=== PATIENT | female | born 1965 | race Caucasian/White ===

== ENCOUNTER 2016-05-17 17:17 | Emergency (ER) | payer MEDICAID ==
[~2016-05-17] VITALS: Ht 170.2 cm; Wt 78.0 kg
[~2016-05-17 17:17] MED LIST: VICODIN 5/500 T1 TAB PO; VOLTAREN75 MG PO
--- NOTE | 2016-05-17 17:23 | Emergency Room Report ---
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 N Clinical Suspician of Infection? N Mental Status: 1 - Regular (Normal Baseline) Sepsis Risk:Low Sepsis Risk Have you (or family members/close friends) recently traveled outside the [place]? N If Yes, where/when: Have you had exposure to infectious disease within the past month? TB? Other? Specify: Comment The patient says that she has had intermittent pain in her LEFT breast going into her axillary area for a couple of weeks. It was many times a day and lasting about 30 minutes at a time. 2-1/2 days ago pain became constant. She describes it as sharp and stabbing. It hurts worse when she raises her LEFT arm and with palpation over the area. She recalls no injury. She has a mild cough from chronic obstructive pulmonary disease but nothing severe. No fever. No hemoptysis. No leg pain or swelling. No nausea or vomiting. No shortness of breath. No medications taken today for the pain. No recent travel, surgeries, or hospitalization. No previous similar symptoms. She says the pain is not in her heart "it's in my boob". She says that she had chest pain also in March and had an angiogram done at [facility] that was negative. She said there were no significant blockages. Her metaphysician is in [facility]. She has cardiac stents. He says she has never had this type of pain before and it does not feel like her heart pain. The patient is tearful and anxious, states that when the dialysis patient care technician had her raise her arm for the x-ray it caused her pain to become more severe. ALLERGIES Coded Allergies: amoxicillin (Mild, 05/17/16) pantoprazole (From PROTONIX) (Mild, 05/17/16) History Medical History General Angina: Yes [place]: No Hypertension? Yes Hyperlipidemia? Yes CHF? No COPD? No Asthma? No CVA? No Seizures? No Diabetes? Yes Insulin Dependent: No Insulin Pump: No Home FSBS? Yes GB Disease: No MRSA? No TB? No Cancer? 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 Hx LMP N/A Family History Family Hx Diabetes Yes CAD Yes Hypertension Yes Hyperlipidemia Yes Cancer Yes TB Yes Social History Smoking Hx Smoker: Current Every Day Smoker Tobacco: Yes Type Cigarettes Packs/day 1 1/2 - 2 Packs Alcohol Alcohol: No Review of Systems All Other Systems Reviewed and Negative Constitutional denies fever Respiratory cough, denies shortness of breath Cardiovascular chest pain Gastrointestinal denies abdominal pain, denies constipation, denies diarrhea, denies nausea, denies vomiting Physical Exam Vital Signs Vital Signs Date Time Temp Pulse Resp B/P Pulse O2 O2 Flow FiO2 Ox Delivery Rate 05/17 1849 18 05/17 1718 98.3 92 18 139/82 97 General Appearance normal appearance, WD/WN Eye Exam - bilateral eye normal exam, bilateral eye PERRL, bilateral eye EOMI Ear, Nose, Throat hearing grossly normal, normal ENT inspection Neck normal inspection, non-tender, supple, full range of motion Respiratory Status Yes: trachea midline, chest symmetrical, tender on palpation. No: respiratory distress. Lung Sounds bilateral: normal breath sounds, lungs clear. Cardiovascular normal exam, regular rate/rhythm, no peripheral edema, no gallop, no JVD, no murmur, no rub, normal peripheral pulses Peripheral Pulses Pulses normal Yes Gastrointestinal normal bowel sounds, normal exam, non tender, soft, no organomegaly Back normal inspection, no CVA tenderness, no vertebral tenderness Extremities non-tender, normal range of motion, normal inspection Neurologic alert, demonstrator knitting II-XII nml as tested, normal exam, oriented x 3 Mental status anxious Skin intact, normal color, warm/dry Comments Reproducible exquisite tenderness to LEFT anterior/lateral chest into the LEFT axilla. Medical Decision Making LABS/Meds/Orders Pt receiving controlled substance in ED? Yes Macoscope was queried for this patient? No Reason not queried - Macoscope system downtime Results/Orders Laboratory Tests 05/17/16 1805: Sodium 139, Potassium 4.0, Chloride 106, Carbon Dioxide 27, BUN 7, Creatinine 0.8, Estimated Creat Clear 105, Estimated GFR (MDRD) 76, Glucose 308 H, Calcium 8.4 L, Total Bilirubin 0.6, AST 7 L, ALT 15, Alkaline Phosphatase 119 H, Creatine Kinase 38, CK-MB (CK-2) Rel Index 2.4, CK and CKMB Interp 0.9, Troponin I < 0.02, Total Protein 6.5, Albumin 3.2 L, Globulin 3.3 H, Albumin/Globulin Ratio 1.0 L, WBC 7.4, RBC 4.28, Hgb 9.9 L, Hct 32.6 L, MCV 76.2 L, RDW 16.0, Plt Count 267, MPV 7.5, Gran % 63.0, Gran # 4.6, Lymphocytes % 30.3, Monocytes % 5.7, Eosinophils % 0.6, Basophils % 0.5, Lymphocytes # 2.2, Monocytes # 0.4, Eosinophils # 0.1, Basophils # 0.0, PUBS MCHC 30.4 L, MCH 23.2 L Current Medication Orders Sig/Ganga Start time Last Medication Dose Route Stop Time Status Admin Ketorolac 0 .STK-MED ONE 05/17 1845 DC Tromethamine .ROUTE Ketorolac 30 MG ONCE ONE 05/17 1844 DC 05/17 Tromethamine IV 05/17 1845 184 Sodium Chloride 10 ML PRN PRN 05/17 1800 AC IV 05/18 1748 Orders Procedure Date/time Status ELECTROCARDIOGRAM REQUEST 05/17 174 Active CHEST(2 VIEWS-NOT PORTABLE) 05/17 174 Active IV SALINE LOCK 05/17 174 Active REPORT CHECKER 05/17 174 Active CBC WITH AUTO DIFF 05/17 174 Complete CARDIAC ENZYMES 05/17 1748 Complete CHEM 12 PROFILE 05/17 1748 Complete 12 LEAD EKG-NIKHIL (INITIAL) 05/17 UNK Active CM/EKG CM/EKG Comments EKG interpreted by Johan Marino MD: Rhythm: sinus Rate: 93 [place]: normal Ectopy: none Conduction: normal ST Segment Changes: none T Wave Changes: Nonspecific, flattening Q Waves: none Baseline artifact present, but I consider the EKG adequate for accurate interpretation. XRAY/CT/US XRAY/CT/US XRAY chest Comment X-ray interpreted by Johan Marino M.D. No infiltrate, pneumothorax, pleural effusion, or wide mediastinum. Progress - I estimate there is LOW risk for PULMONARY EMBOLISM, ACUTE CORONARY SYNDROME, OR THORACIC AORTIC DISSECTION, thus I consider the discharge disposition reasonable. The patient has had constant pain for 2-1/2 days with negative cardiac enzymes. Her examination is consistent with chest wall pain. She had a negative cardiac cath in March. The patient is not currently have a primary care physician but is scheduled to see Dr. Maradiaga later this month. She says she recently moved. However, she did not have a primary care physician in [place] either. Advised to follow-up with Dr. Maradiaga as soon as possible. Advised of blood sugar and hemoglobin which will need follow-up. Departure Departure Disposition DC Home or Self Care(routine) Clinical Impression Primary Impression: Chest wall pain Condition STABLE Referrals NO REFERRAL Patient Instructions DI for Chest Pain Additional Instructions Additional instructions for CHEST PAIN: See your physician as soon as possible for further evaluation. Return immediately if worsening chest pain, vomiting, shortness of breath, fever, coughing of blood. Additional instructions for CONTROLLED SUBSTANCES: You have been prescribed a medication that is a controlled substance. Controlled substances include pain medications known as opiates and sedative nerve medications known as benzodiazepines. Some common opiates include: Codeine (such as Tylenol #3) Hydrocodone (Vicodin, Lortab, Lorcet, [place]) Oxycodone (Percocet, Percodan, Oxycodone, Oxy IR) Some common benzodiazepines include: Diazepam (Valium) Lorazepam (Ativan) Alprazolam (Xanax) Clonazepam (Klonopin) Oxazepam (Serax) All of these controlled substances are highly addictive and frequently abused. Misuse can and frequently does lead to addiction as well as overdose and . Short term supplies, 3 days or less, are prescribed because of the highly addictive nature of the medication. Any of the controlled substance medication NOT taken should be disposed of properly and NOT SAVED. The recommended method of disposing of unused medications is: Place the medicines in a sealable plastic bag. If the medicine is a solid, crush it or add water to dissolve it. Add something undesirable (cat litter, coffee grounds, etc.) Dispose of sealed bag in household trash Do not flush or pour unused medicines down a sink or drain. Also, because of the addictive nature and frequent abuse, these medications are sometimes stolen. These medications should be kept in a safe place where they cannot be stolen. Do not keep them in your car or purse. Lost or stolen prescriptions for controlled substances WILL NOT BE REFILLED in this emergency department, regardless of whether a police report was filed. Prescriptions Current Visit Scripts HYDROCODONE/ACETAMINOPHEN ([place] 5-325 Tablet) 1 TAB PO Q6HP PRN pain #10 TAB Naproxen (Naprosyn 500MG Tab) 500 MG PO BID #14 TAB ED Critical Care Critical Care No at 1918
--- NOTE | 2016-05-17 17:23 | Emergency Room Report ---
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 N Clinical Suspician of Infection? N Mental Status: 1 - Regular (Normal Baseline) Sepsis Risk:Low Sepsis Risk Have you (or family members/close friends) recently traveled outside the [place]? N If Yes, where/when: Have you had exposure to infectious disease within the past month? TB? Other? Specify: Comment The patient says that she has had intermittent pain in her LEFT breast going into her axillary area for a couple of weeks. It was many times a day and lasting about 30 minutes at a time. 2-1/2 days ago pain became constant. She describes it as sharp and stabbing. It hurts worse when she raises her LEFT arm and with palpation over the area. She recalls no injury. She has a mild cough from chronic obstructive pulmonary disease but nothing severe. No fever. No hemoptysis. No leg pain or swelling. No nausea or vomiting. No shortness of breath. No medications taken today for the pain. No recent travel, surgeries, or hospitalization. No previous similar symptoms. She says the pain is not in her heart "it's in my boob". She says that she had chest pain also in March and had an angiogram done at [facility] that was negative. She said there were no significant blockages. Her speedometer inspector is in [facility]. She has cardiac stents. He says she has never had this type of pain before and it does not feel like her heart pain. The patient is tearful and anxious, states that when the sound technician had her raise her arm for the x-ray it caused her pain to become more severe. ALLERGIES Coded Allergies: amoxicillin (Mild, 05/17/16) pantoprazole (From PROTONIX) (Mild, 05/17/16) History Medical History General Angina: Yes [place]: No Hypertension? Yes Hyperlipidemia? Yes CHF? No COPD? No Asthma? No CVA? No Seizures? No Diabetes? Yes Insulin Dependent: No Insulin Pump: No Home FSBS? Yes GB Disease: No MRSA? No TB? No Cancer? 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 LMP N/A Family History Family Hx Diabetes Yes CAD Yes Hypertension Yes Hyperlipidemia Yes Cancer Yes TB Yes Social History Smoking Hx Smoker: Current Every Day Smoker Tobacco: Yes Type Cigarettes Packs/day 1 1/2 - 2 Packs Alcohol Alcohol: No Review of Systems All Other Systems Reviewed and Negative Constitutional denies fever Respiratory cough, denies shortness of breath Cardiovascular chest pain Gastrointestinal denies abdominal pain, denies constipation, denies diarrhea, denies nausea, denies vomiting Physical Exam Vital Signs Vital Signs Date Time Temp Pulse Resp B/P Pulse O2 O2 Flow FiO2 Ox Delivery Rate 05/17 1849 18 05/17 1718 98.3 92 18 139/82 97 General Appearance normal appearance, WD/WN Eye Exam - bilateral eye normal exam, bilateral eye PERRL, bilateral eye EOMI Ear, Nose, Throat hearing grossly normal, normal ENT inspection Neck normal inspection, non-tender, supple, full range of motion Respiratory Status Yes: trachea midline, chest symmetrical, tender on palpation. No: respiratory distress. Lung Sounds bilateral: normal breath sounds, lungs clear. Cardiovascular normal exam, regular rate/rhythm, no peripheral edema, no gallop, no JVD, no murmur, no rub, normal peripheral pulses Peripheral Pulses Pulses normal Yes Gastrointestinal normal bowel sounds, normal exam, non tender, soft, no organomegaly Back normal inspection, no CVA tenderness, no vertebral tenderness Extremities non-tender, normal range of motion, normal inspection Neurologic alert, stereotype caster II-XII nml as tested, normal exam, oriented x 3 Mental status anxious Skin intact, normal color, warm/dry Comments Reproducible exquisite tenderness to LEFT anterior/lateral chest into the LEFT axilla. Medical Decision Making LABS/Meds/Orders Pt receiving controlled substance in ED? Yes [place] was queried for this patient? No Reason not queried - Flickme system downtime Results/Orders Laboratory Tests 05/17/16 1805: Sodium 139, Potassium 4.0, Chloride 106, Carbon Dioxide 27, BUN 7, Creatinine 0.8, Estimated Creat Clear 105, Estimated GFR (MDRD) 76, Glucose 308 H, Calcium 8.4 L, Total Bilirubin 0.6, AST 7 L, ALT 15, Alkaline Phosphatase 119 H, Creatine Kinase 38, CK-MB (CK-2) Rel Index 2.4, CK and CKMB Interp 0.9, Troponin I < 0.02, Total Protein 6.5, Albumin 3.2 L, Globulin 3.3 H, Albumin/Globulin Ratio 1.0 L, WBC 7.4, RBC 4.28, Hgb 9.9 L, Hct 32.6 L, MCV 76.2 L, RDW 16.0, Plt Count 267, MPV 7.5, Gran % 63.0, Gran # 4.6, Lymphocytes % 30.3, Monocytes % 5.7, Eosinophils % 0.6, Basophils % 0.5, Lymphocytes # 2.2, Monocytes # 0.4, Eosinophils # 0.1, Basophils # 0.0, PUBS MCHC 30.4 L, MCH 23.2 L Current Medication Orders Sig/Ganga Start time Last Medication Dose Route Stop Time Status Admin Ketorolac 0 .STK-MED ONE 05/17 1845 DC Tromethamine .ROUTE Ketorolac 30 MG ONCE ONE 05/17 1844 DC 05/17 Tromethamine IV 05/17 1845 184 Sodium Chloride 10 ML PRN PRN 05/17 1800 AC IV 05/18 1748 Orders Procedure Date/time Status ELECTROCARDIOGRAM REQUEST 05/17 174 Active CHEST(2 VIEWS-NOT PORTABLE) 05/17 174 Active IV SALINE LOCK 05/17 174 Active SCHOOL RESOURCE OFFICER 05/17 174 Active CBC WITH AUTO DIFF 05/17 174 Complete CARDIAC ENZYMES 05/17 1748 Complete CHEM 12 PROFILE 05/17 1748 Complete 12 LEAD EKG-NIKHIL (INITIAL) 05/17 UNK Active CM/EKG CM/EKG Comments EKG interpreted by Johan Marino MD: Rhythm: sinus Rate: 93 [place]: normal Ectopy: none Conduction: normal ST Segment Changes: none T Wave Changes: Nonspecific, flattening Q Waves: none Baseline artifact present, but I consider the EKG adequate for accurate interpretation. XRAY/CT/US XRAY/CT/US XRAY chest Comment X-ray interpreted by Johan Marino M.D. No infiltrate, pneumothorax, pleural effusion, or wide mediastinum. Progress - I estimate there is LOW risk for PULMONARY EMBOLISM, ACUTE CORONARY SYNDROME, OR THORACIC AORTIC DISSECTION, thus I consider the discharge disposition reasonable. The patient has had constant pain for 2-1/2 days with negative cardiac enzymes. Her examination is consistent with chest wall pain. She had a negative cardiac cath in March. The patient is not currently have a primary care physician but is scheduled to see Dr. Maradiaga later this month. She says she recently moved. However, she did not have a primary care physician in [place] either. Advised to follow-up with Dr. Maradiaga as soon as possible. Advised of blood sugar and hemoglobin which will need follow-up. Departure Departure Disposition DC Home or Self Care(routine) Clinical Impression Primary Impression: Chest wall pain Condition STABLE Referrals NO REFERRAL Patient Instructions DI for Chest Pain Additional Instructions Additional instructions for CHEST PAIN: See your physician as soon as possible for further evaluation. Return immediately if worsening chest pain, vomiting, shortness of breath, fever, coughing of blood. Additional instructions for CONTROLLED SUBSTANCES: You have been prescribed a medication that is a controlled substance. Controlled substances include pain medications known as opiates and sedative nerve medications known as benzodiazepines. Some common opiates include: Codeine (such as Tylenol #3) Hydrocodone (Vicodin, Lortab, Lorcet, [place]) Oxycodone (Percocet, Percodan, Oxycodone, Oxy IR) Some common benzodiazepines include: Diazepam (Valium) Lorazepam (Ativan) Alprazolam (Xanax) Clonazepam (Klonopin) Oxazepam (Serax) All of these controlled substances are highly addictive and frequently abused. Misuse can and frequently does lead to addiction as well as overdose and . Short term supplies, 3 days or less, are prescribed because of the highly addictive nature of the medication. Any of the controlled substance medication NOT taken should be disposed of properly and NOT SAVED. The recommended method of disposing of unused medications is: Place the medicines in a sealable plastic bag. If the medicine is a solid, crush it or add water to dissolve it. Add something undesirable (cat litter, coffee grounds, etc.) Dispose of sealed bag in household trash Do not flush or pour unused medicines down a sink or drain. Also, because of the addictive nature and frequent abuse, these medications are sometimes stolen. These medications should be kept in a safe place where they cannot be stolen. Do not keep them in your car or purse. Lost or stolen prescriptions for controlled substances WILL NOT BE REFILLED in this emergency department, regardless of whether a police report was filed. Prescriptions Current Visit Scripts HYDROCODONE/ACETAMINOPHEN ([place] 5-325 Tablet) 1 TAB PO Q6HP PRN pain #10 TAB Naproxen (Naprosyn 500MG Tab) 500 MG PO BID #14 TAB ED Critical Care Critical Care No at 1918
[2016-05-17 18:13] LABS: HEMOGLOBIN 9.9 g/dL (12.2-16.2); LYMPH # 2.2 K/mm3 (0.7-4.5); LYMPH % 30.3 % (10-50.0)
[2016-05-17 18:36] LABS: BUN 7 mg/dL (7-18)
[2016-05-17 18:38] LABS: GFR (ESTIMATED) 76 ML/MIN (59-)
[2016-05-17] MEDS ORDERED: NAPROSYN500 M1 PO (19:17)
[2016-05-17] MEDS ORDERED: NORCO 325 MG-51 TAB PO (19:17)
--- NOTE | 2016-05-17 19:17 | RADIOLOGY REPORT PS360 ---
CHEST(2 VIEWS-NOT PORTABLE) INDICATION: S pain COMPARISON: Portable upright chest 03/03/2008. FINDINGS: The lung villarreal are well expanded and appear clear of infiltrate. The cardiomediastinal silhouette and vascularity are normal. The costophrenic angles are clear. The bony thorax is normal. IMPRESSION: Normal chest.
[2016-05-17 19:36] VITALS: BP 103/64
[2016-06-08] MEDS ORDERED: LISINOPRIL 5MG T5 MG PO (18:11)
[2016-06-08] MEDS ORDERED: METFORMIN500 MG PO (18:11)
[2016-06-08] MEDS ORDERED: GLIPIZIDE5 MG PO (18:12)
[2016-06-08] MEDS ORDERED: LIPITOR40 MG PO (18:12)
[2016-06-08] MEDS ORDERED: ADULT LOW DOSE81 MG PO (18:14)
[2016-06-08] MEDS ORDERED: PLAVIX 75MG TAB75 MG PO (18:26)
[2016-06-08] MEDS ORDERED: CIPRO 500MG TA500 MG PO (19:03)
[2016-06-08] MEDS ORDERED: DIFLUCAN150 MG PO (19:08)
[2016-06-08] MEDS ORDERED: DOXYCYCLINE HY100 MG PO (20:05)
[2016-06-08] MEDS ORDERED: LORTAB 10/3251 TAB PO (20:06)
== END 2016-05-17 19:38 | disposition home or self-care (01) ==
LOC: ER 17:17
PROVIDERS: Emergency Medicine
DX: R07.89 Other chest pain (principal); I10 Essential (primary) hypertension; Z72.0 Tobacco use

== ENCOUNTER → 2016-10-23 | Outpatient (CLI) | payer MEDICAID ==
[~2016-10-23] MED LIST changes: +ADULT LOW DOSE81 MG PO; +BUPRENORPHINE H1 TA1 SL; +CIPRO 500MG TA500 MG PO; +DICYCLOMINE HYD20 MG PO; +DIFLUCAN150 MG PO; +DOXYCYCLINE HY100 MG PO; +GLIPIZIDE5 MG PO; +LIPITOR40 MG PO; +LISINOPRIL 5MG T5 MG PO; +LORTAB 10/3251 TAB PO; +METFORMIN500 MG PO; +NAPROSYN500 M1 PO; +NORCO 325 MG-51 TAB PO; +PHENERGAN25 M3 PO; +PLAVIX 75MG TAB75 MG PO; +PREDNISONE 10MG10 MG PO; +PREVACID30 M1 PO; +TYLENOL WITH CO1 TA1 PO; +ZOFRAN ODT4 MG PO
[2016-10-23 15:39] LABS: HEMOGLOBIN 10.7 g/dL (12.2-16.2); LYMPH # 1.8 K/mm3 (0.7-4.5); LYMPH % 22.9 % (10-50.0)
== END ==
LOC: LAB 15:24
PROVIDERS: Obstetrics & Gynecology
DX: N93.8 Other specified abnormal uterine and vaginal bleeding (principal); N94.9 Unspecified condition associated with female genital organs and menstrual cycle

== ENCOUNTER → 2016-11-27 | Outpatient (CLI) | payer MEDICAID ==
[2016-11-27 09:47] LABS: URINE BILIRUBIN - DIPSTICK NEGATIVE (NEG); URINE BLOOD NEGATIVE (NEG)
[2016-11-27 10:32] LABS: URINE SQUAMOUS CELLS OCC #/hpf (0-5)
[2016-11-27 11:17] LABS: BUN 10 mg/dL (7-18)
[2016-11-27 11:21] LABS: GFR (ESTIMATED) 76 ML/MIN (59-)
[2016-11-27 11:31] LABS: LYMPH # 1.9 K/mm3 (0.7-4.5); LYMPH % 25.2 % (10-50.0)
[2016-11-27 11:59] LABS: HEMOGLOBIN 11.9 g/dL (12.2-16.2)
== END ==
LOC: LAB 09:17
PROVIDERS: Obstetrics & Gynecology
DX: N83.201 Unspecified ovarian cyst, right side (principal); Z01.812 Encounter for preprocedural laboratory examination

== ENCOUNTER → 2016-12-01 | Outpatient (CLI) | payer MEDICAID | LOC: LAB 11:52 | DX: Z13.1 Encounter for screening for diabetes mellitus (principal) ==

== ENCOUNTER → 2016-12-25 | Outpatient (CLI) | payer MEDICAID ==
[2016-12-25 15:07] LABS: URINE BILIRUBIN - DIPSTICK NEGATIVE (NEG); URINE BLOOD 3+ (NEG)
[2016-12-25 15:13] LABS: URINE SQUAMOUS CELLS OCC #/hpf (0-5)
[2016-12-25 15:19] LABS: LYMPH # 2.1 K/mm3 (0.7-4.5); LYMPH % 25.7 % (10-50.0)
[2016-12-25 15:37] LABS: BUN 11 mg/dL (7-18); GFR (ESTIMATED) 76 ML/MIN (59-)
[2016-12-25 16:16] LABS: HEMOGLOBIN 14.5 g/dL (12.2-16.2)
== END ==
LOC: LAB 14:09
PROVIDERS: Obstetrics & Gynecology
DX: N93.8 Other specified abnormal uterine and vaginal bleeding (principal); Z01.812 Encounter for preprocedural laboratory examination